=== PATIENT | female | born 1995 | race Caucasian/White ===

== ENCOUNTER → 2020-05-11 | Outpatient (REF) | payer BC ==
[2020-06-11 14:21] LABS: CHLAMYDIA DNA AMPLIFICATION NEGATIVE (NEGATIVE); GC DNA AMPLIFICATION NEGATIVE (NEGATIVE)
[2020-06-28 21:57] LABS: BASO % 0.3 % (0.0-1.0); EOS # 0.1 10^3/uL (0.0-0.5); EOS % 0.6 % (0.0-3.0); HEMATOCRIT 40.4 % (36.0-47.0); HEMOGLOBIN 14.3 g/dl (12.0-15.5); LYMPH # 1.8 10^3/uL (1.5-5.0); LYMPH % 21.1 % (24.0-44.0); MEAN CORPUSCULAR HEMOGLOBIN 31.9 pg (27.0-33.0); MEAN CORPUSCULAR HGB CONC 35.4 g/dl (32.0-36.5); MEAN CORPUSCULAR VOLUME 90.2 fl (80.0-96.0); MONO # 0.4 10^3/uL (0.0-0.8); MONO % 4.7 % (0.0-5.0); NEUTROPHILS # 6.3 10^3/uL (1.5-8.5); NEUTROPHILS % 72.8 % (36.0-66.0); PLATELET COUNT, AUTOMATED 297 10^3/uL (150-450); RED BLOOD COUNT 4.48 10^6/uL (4.00-5.40); WHITE BLOOD COUNT 8.6 10^3/uL (4.0-10.0)
[2020-07-05 03:48] LABS: HEPATITIS C VIRUS ABY INDEX 0.1 INDEX (<0.8); HIV 1&2 SCREEN CENTAUR NEGATIVE (NEGATIVE)
== END ==
LOC: M SFHCWAGY 12:54
PROVIDERS: ATTEND Advanced Practice Midwife
DX: Z34.01 Encounter for supervision of normal first pregnancy, first trimester (principal)

== ENCOUNTER → 2020-07-09 | Outpatient (CLI) | payer BC ==
--- NOTE | 2020-07-09 12:17 | REP ---
INDICATION: ANATOMY COMPARISON: None. TECHNIQUE: Transabdominal obstetrical ultrasound with color Doppler evaluation. FINDINGS: Examination demonstrates a single live intrauterine in breech presentation. motion is identified by technologist. Placenta is noted anterior and grade 1 without evidence for placenta previa or abruption. Amniotic fluid volume is normal. Cervix measures 3.1 cm in length and appears closed. No evidence for nuchal cord. Gestational age by current measurements 18 weeks 5 days with TASNEEM 12/05/2020. FHR equals 152 beats per minute. BPD: 4.1 cm; 18 weeks 3 days HC: 15.5 cm; 18 weeks 3 days AC: 14.0 cm; 19 weeks 2 days FL: 2.8 cm; 18 weeks 4 days HL: 2.7 cm; 18 weeks 5 days HC/AC ratio: 1.11 Estimated weight 263 grams (59thpercentile). Anatomical assessment demonstrates normal structures including cranium, cavum, cerebellum/posterior fossa, facial features, lungs, four-chamber heart/ventricular outflow tracts, diaphragm, stomach, cord insertion/three-vessel cord, kidneys/bladder, spine, and extremities. Small incidental right choroid plexus cyst measures 3 mm. IMPRESSION: 1. Single live intrauterine in breech presentation demonstrating appropriate estimated weight. 2. Right choroid plexus cyst. Remainder of the anatomical assessment is complete and normal. <Electronically signed by Samuel Villeda > 07/09/20 [id number]
== END ==
LOC: M WHC 06:47
PROVIDERS: ATTEND Advanced Practice Midwife
DX: O32.1XX0 Maternal care for breech presentation, not applicable or unspecified (principal); Z36.89 Encounter for other specified antenatal screening; Z3A.18 18 weeks gestation of pregnancy

== ENCOUNTER → 2020-09-03 | Outpatient (REF) | payer BC ==
[2020-09-03 13:19] LABS: HEMATOCRIT 37.7 % (36.0-47.0); HEMOGLOBIN 12.8 g/dl (12.0-15.5); MEAN CORPUSCULAR HEMOGLOBIN 32.3 pg (27.0-33.0); MEAN CORPUSCULAR VOLUME 95.2 fl (80.0-96.0); PLATELET COUNT, AUTOMATED 315 10^3/uL (150-450); RED BLOOD COUNT 3.96 10^6/uL (4.00-5.40); WHITE BLOOD COUNT 10.1 10^3/uL (4.0-10.0)
== END ==
LOC: M PLALAB 08:35
PROVIDERS: ATTEND Advanced Practice Midwife
DX: Z34.02 Encounter for supervision of normal first pregnancy, second trimester (principal)

== ENCOUNTER → 2020-11-18 | Outpatient (REF) | payer BC, OTHER | LOC: M SFHCPLAZ 18:37 | PROVIDERS: ATTEND Advanced Practice Midwife | DX: O26.849 Uterine size-date discrepancy, unspecified trimester (principal) ==

== ENCOUNTER → 2020-11-25 | Outpatient (CLI) | payer OTHER, MEDICAID ==
--- NOTE | 2020-11-25 10:27 | REP ---
INDICATION: SIZE>DATES,GROWTH COMPARISON: 07/09/2020 TECHNIQUE: Transabdominal obstetrical ultrasound with color Doppler evaluation. FINDINGS: Examination demonstrates a single live intrauterine in cephalic presentation. motion is identified by technologist. Placenta is noted anterior and grade 2 without evidence for placenta previa or abruption. Amniotic fluid volume is normal. Cervix appears closed.. Gestational age by 1st ultrasound 30 weeks 4 days with TASNEEM 12/05/2020. Gestational age by current measurements 37 weeks 2 days with TASNEEM 12/14/2020. FHR equals 153 beats per minute. BPD: 9.1 cm at 36 weeks 5 days HC: 33.1 cm at 37 weeks 5 days AC: 36.3 cm at 40 weeks 2 days FL: 6.9 cm at 35 weeks 3 days HL: 6.3 cm at 36 weeks 2 days HC/AC: 0.91 Estimated weight 3510 grams (71st percentile). SYLVIA: 17.4 cm (7.3-23.7) IMPRESSION: Single live intrauterine in cephalic presentation demonstrating appropriate interval growth. <Electronically signed by Samuel Villeda > 11/25/20 1024
== END ==
LOC: M WHC 09:34
PROVIDERS: ATTEND Advanced Practice Midwife
DX: O26.843 Uterine size-date discrepancy, third trimester (principal); Z3A.37 37 weeks gestation of pregnancy

== ENCOUNTER 2020-12-10 08:50 | Inpatient (IN) | payer OTHER, MEDICAID ==
[2020-12-10] VITALS (54 sets, daily range): BP systolic 97–136; BP diastolic 54–101
[~2020-12-10] VITALS: Ht 149.9 cm; Wt 60.6 kg
[2020-12-10] MEDS ORDERED: PREN1CHW6 PO (09:17)
[2020-12-10] MEDS ORDERED: LACTATED RINGER'S 1000 ML IV STA (10:58)
--- NOTE | 2020-12-10 11:04 | HPEPDOC ---
Obstetrical History & Physical General Date of Admission 12/10/20 Primary Care Physician: KELLI CABRERA CNM History of Present Illness Dejah is at 40.2 weeks gestation with an TASNEEM of 12/08/20 based off of her LMP and consistent with her first trimester ultrasound. She initiated care in her first trimester of . Her has been uncomplicated. She presents to L&D with complaints of leaking fluid starting last night at 2300 and painful contractions. She reports active movements. She denies vaginal bleeding. 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chew, 1 TAB PO DAILY Physical Examination Physical Examination GENERAL: Alert and oriented times three. ABDOMEN: Gravid and non-tender to touch. FETUS: Is vertex (VTX) by sterile vaginal examination (SVE), fetus is vertex (VTX) by Kyle. LUNGS: Clear to auscultation (CTA). EXTREMITIES: No edema. No clonus. Deep tendon reflexes (DTRs) + 2. Vital Signs/I&O Vital Signs Date Time Temp Pulse Resp B/P (MAP) Pulse Ox O2 Delivery O2 Flow Rate FiO2 12/10/20 09:15 98.1 90 20 119/75 (90) 98 Room Air Pertinent Laboratoy Data Blood Type: A+ RBC Antibody Screen: Negative HIV: Negative Hepatitis B: Negative Hepatitis C: Negative Rapid Plasma Reagin: Nonreactive Rubella: Immune Chlamydia/Gonorrhea: Negative Group B Streptococcus: Negative Glucose Tolerance Test: 102 Anatomy Ultrasound Ultrasound Date: Nov 25, 2020 Placenta Location: Anterior Normal Anatomy: Yes Placenta Previa: No Estimated Weight (grams): 3510 Vaginal Examination Dilation: 5 cm Effacement: 100% Station: 0 Presentation: Cephalic presentation Position: Vertex (occiput) Assessment Heart Rate (FHR): 130 Variability: Moderate Accelerations: Positive Decelerations: None Tocometer Contractions: Yes Frequency: irregular Multi-drug resistant Organism: No history of MDRO Assessment/Plan Assessment IUP at 40.2 weeks gestation GBS negative Category I FHR tracing active labor Plan Admit to L&D for active labor. She has a bulging bag of fluid and is not ruptured. OOB ad chas Diet: clears. Group B Streptococcus (GBS) negative. Labs and intravenous (IV) per unit protocol. Anesthesia consult per patient's request. Lactated Ringers (LR): Bolus 800 mL, then at 125 mL/hr. Anticipate normal spontaneous delivery (). C-S as appropriate. KELLI CABRERA CNM Dec 10, 2020 11:04
[2020-12-10 11:45] LABS: HEMATOCRIT 38.9 % (36.0-47.0); HEMOGLOBIN 13.6 g/dl (12.0-15.5); MEAN CORPUSCULAR HEMOGLOBIN 31.9 pg (27.0-33.0); MEAN CORPUSCULAR VOLUME 91.1 fl (80.0-96.0); PLATELET COUNT, AUTOMATED 248 10^3/uL (150-450); RED BLOOD COUNT 4.27 10^6/uL (4.00-5.40); WHITE BLOOD COUNT 12.9 10^3/uL (4.0-10.0)
[2020-12-10] MEDS ORDERED: FENTANYL 2MCG/ML ROPIVACAINE 0.2% IN 0.9% NACL 100ML IVBAG As Ordered ONE (12:17)
[2020-12-10] MEDS: LR 1,000 ML IV SCH ×3 (12:23→17:11)
[2020-12-10] MEDS ORDERED: ePHEDrine SULFATE 25 MG/5 ML(5MG/ML) SYRINGE As Ordered ONE (13:47)
[2020-12-10] MEDS: ePHEDrine SULFATE 25 MG/5 ML(5MG/ML) SYRINGE IV PRN ×3 (13:54→15:56)
[2020-12-10] MEDS ORDERED: FENTANYL/ROPIVACAINE/NACL BAG 100 ML EPIDURAL SCH (13:55)
[2020-12-10] MEDS ORDERED: EPIDURAL/PCA KEYS XX PRN (13:55)
[2020-12-10] MEDS ORDERED: EPIDURAL COMMENT XX SCH (13:55)
[2020-12-10] MEDS ORDERED: NALOXONE INJ 0.4MG/1ML VIAL (J2310 PER 1MG) IV PRN (13:55)
[2020-12-10] MEDS ORDERED: REFRIGERATOR IV KEYS XX PRN (13:55)
[2020-12-10] MEDS ORDERED: LACTATED RINGER'S 1000 ML IV PRN (13:55)
[2020-12-10] MEDS ORDERED: ONDANSETRON 4MG/2ML VIAL IV PRN (13:55)
[2020-12-10] MEDS ORDERED: diphenhydrAMINE 50MG/ML VIAL (J1200) IV PRN (13:55)
[2020-12-10] MEDS ORDERED: OXYTOCIN DRIP 30 UNITS in IV 1 EA IV SCH (15:15)
--- NOTE | 2020-12-10 17:50 | IPNPDOC ---
Obstetrical Progress Note Date of Service Dec 10, 2020 Subjective Patient reports she is comfortable with her epidural. Objective Vital Signs Date Time Temp Pulse Resp B/P (MAP) Pulse Ox O2 Delivery O2 Flow Rate FiO2 12/10/20 17:31 99.1 12/10/20 17:30 94 16 106/60 (75) 99 Room Air Assessment Heart Rate (FHR): 140 Variability: Moderate Accelerations: Positive Decelerations: None Heart Rate Tracing: Category I Tocometer Contractions: Yes Frequency: regular Sterile Vaginal Examination Dilation: 7 cm (7-8 cm) Effacement (%): 100% Station: 0 Postion/Presentation: Cephalic presentation Assessment and Plan Status: Reassuring Group B Streptococcus: Negative Anticipate: Vaginal Delivery Additional Comments IV Pitocin at 6 mu/min. AROM to a moderate amount of white/clear fluid. KELLI CABRERA CNM Dec 10, 2020 17:50
--- NOTE | 2020-12-10 22:15 | IPNPDOC ---
Obstetrical Progress Note Date of Service Dec 10, 2020 Subjective Patient feeling pressure and feeling like she has to push at times. Objective Vital Signs Date Time Temp Pulse Resp B/P (MAP) Pulse Ox O2 Delivery O2 Flow Rate FiO2 12/10/20 18:59 89 20 105/59 (74) 12/10/20 17:31 99.1 12/10/20 17:30 99 Room Air Assessment Heart Rate (FHR): 140 Variability: Moderate Accelerations: Positive Decelerations: Early Heart Rate Tracing: Category I Tocometer Contractions: Yes Frequency: regular Sterile Vaginal Examination Dilation: 9 cm (anterior lip) Station: +1 Postion/Presentation: Cephalic presentation Assessment and Plan Status: Reassuring Group B Streptococcus: Negative Anticipate: Vaginal Delivery KELLI CABRERA CNM Dec 10, 2020 22:14
[2020-12-11] VITALS (13 sets, daily range): BP systolic 104–126; BP diastolic 59–77
[2020-12-11] MEDS ORDERED: ACETAMINOPHEN 500 MG TAB PO ONE (00:45)
[2020-12-11] MEDS: LR 1,000 ML IV SCH (00:52)
--- NOTE | 2020-12-11 01:25 | IPNPDOC ---
Obstetrical Progress Note Date of Service Dec 11, 2020 Subjective Patient reports good pain control with epidural. She is having good maternal pushing efforts. Objective Vital Signs Date Time Temp Pulse Resp B/P (MAP) Pulse Ox O2 Delivery O2 Flow Rate FiO2 12/10/20 18:59 89 20 105/59 (74) 12/10/20 17:31 99.1 12/10/20 17:30 99 Room Air Assessment Heart Rate (FHR): 180 Variability: Moderate (FHR 180-200's) Accelerations: Positive Decelerations: Variable Heart Rate Tracing: Category II Tocometer Contractions: Yes Assessment and Plan Additional Comments Dr. Pimentel notified of tachycardia and maternal fever and instructed to come in for assistance. Given Tylenol 1000 mg PO for fever. Will continue to push with patient until arrival of Dr. Pimentel. KELLI CABRERA CNM Dec 11, 2020 01:25
--- NOTE | 2020-12-11 02:32 | ROOPDOC ---
[facility] Report Of Operation Report of Operation DATE OF PROCEDURE: 12/11/20 PREPROCEDURE DIAGNOSES: Status post vaginal delivery, second degree laceration, intra-amniotic infection POSTPROCEDURE DIAGNOSES: same PROCEDURE: Second degree obstetric laceration repair. SURGEON: Marifer Pimentel APPRAISER BOATS AND MARINE: Christen Hartley ANESTHESIA: Epidural ESTIMATED BLOOD LOSS: Approximately 300 mL. PROCEDURE NOTE: Epidural was functioning well. External anal sphincter was noted to be intact. A second degree laceration was noted and repaired with 3-0 Vicryl in typical running locked fashion. Excellent hemostasis was noted. Given the degree of vulvar swelling, an ice pack was placed over the repaired perineum. The bladder was drained with a straight catheter. Patient tolerated the procedure well. Vitals were normal and stable. The patient will be receiving IV antibiotics given her diagnosis of IAI. Sponge, needle and instrument counts were correct per protocol. DO DANIA Robledo JONATHAN R. DO Dec 11, 2020 02:32
[2020-12-11 02:34] LABS: CORD GAS ABE V -12.5; CORD GAS HCO3 V 14.8 MEQ/L; CORD GAS O2 SAT V 72.4 %; CORD GAS PCO2 V 38.8 mmHg; CORD GAS PH V 7.198 UNITS; CORD GAS SBC V 14.6 MEQ/L; CORD GAS TCO2 V 15.9 MEQ/L
[2020-12-11] MEDS: AMPICILLIN SOD/SULBACTAM SOD 3 GM in D5W MINI-BAG PLUS 100 ML IV SCH ×4 (03:03→21:56)
--- NOTE | 2020-12-11 03:10 | DNPDOC ---
[facility] Delivery Note Delivery Note DATE OF DELIVERY: 12/11/20 at 0157 PREDELIVERY DIAGNOSIS: 40-2/7 weeks' gestation and labor. POST DELIVERY DIAGNOSIS: Delivered. PROCEDURE: Spontaneous vaginal delivery. TRAIN BRAKER: Kelli Hartley CNM, WHNP ANESTHESIA: epidural. ESTIMATED BLOOD LOSS: 300 mL. FINDINGS: 7 pounds 8 ounces; 3400 grams; male , Score 7/8, nuchal cord times x1 loose, chorioamnionitis, nuchal cord x1 loose. DELIVERY SUMMARY: Yana is now a who presented to L&D in active labor. She requested an epidural for pain management. She progressed to fully dilated at 2222. While pushing (an hour before delivery) she spiked a temperature of 101.5 and given PO Tylenol. About that time the fetus started having a tachycardia. Dr. Pimentel was notified to come into department about 30-40 minutes after fever started. Maternal pushing efforts improved and patient was able to have a vaginal delivery while Dr. Pimentel was present. The head delivered OA with restitution to LOT. A loose nuchal cord was noted and reduced. The anterior shoulder delivered with ease and the corpus immediately followed. A large amount of meconium followed delivery of baby. The baby was placed on the maternal abdomen active and crying with stimulation. The cord was clamped after a few minutes per patient's request. A venous cord was only able to be obtained and sent to lab. The placenta delivered spontaneously and intact at 0202. Uterine hemostasis was achieved via rapid infusion of IV infusion and fundal massage. The vagina, cervix, and perineum were inspected and found to have a second degree perineal laceration that was repaired by Dr. Pimentel. Her perineum is very swollen. Ice diapers ordered for 24 hours along with Unasyn 3 grams every 6 hours for 24 hours. Baby is stable and will be brought over to NICU per chorioamnionitis protocols. Mom is stable. All instruments and sponges are correct. They plan on naming their son Mac and mom plans to breastfeed. Vital Signs Label Value Date Time Patient Temperature 98.1 degrees F 12/10/20 0915 Temperature Source Temporal 12/10/20 0915 Pulse 90 12/10/20 0915 Respiratory Rate 20 bpm 12/10/20 0915 Blood Pressure Assessment 119/75 (90) 3/19/21 0915 Source Automatic Cuff (NIBP) Bedside Pulse Oximetry 98 % 12/10/20914 Item Value Date Time Cord Venous Blood pH 7.198 UNITS 12/11/20211 Cord Venous Blood PCO2 38.8 mmHg 12/11/20211 Cord Venous Blood PO2 36.0 mmHg 12/11/20211 Cord Venous Blood HCO3 14.8 MEQ/L 12/11/20211 Cord Venous Blood Total CO2 15.9 MEQ/L 12/11/20211 Cord Venous Base Excess (Actual) -12.5 12/11/20211 Cord Venous Base Excess (Standard) 14.6 MEQ/L 12/11/20211 Cord Venous Blood Oxygen Saturation 72.4 % 12/11/20211 KELLI HARTLEY CNM Dec 11, 2020 03:10
[2020-12-11] MEDS ORDERED: OXYTOCIN DRIP 30 UNITS in IV 1 EA IV SCH (03:12)
[2020-12-11] MEDS ORDERED: IBUPROFEN 600MG TAB PO PRN (03:15)
[2020-12-11] MEDS ORDERED: DOCUSATE SODIUM 100MG CAPSULE PO PRN (03:15)
[2020-12-11] MEDS ORDERED: MEASLES,MUMPS,RUBELLA VACCINE INJ (MMR-II) (90707) SC SCH (03:15)
[2020-12-11] MEDS ORDERED: METHYLERGONOVINE MALEATE 0.2 MG TAB PO PRN (03:15)
[2020-12-11] MEDS ORDERED: RHOGAM 300 MCG (1500 IU) INJ (J2790) IM SCH (03:15)
[2020-12-11] MEDS ORDERED: ACETAMINOPHEN TAB 650MG DOSE (2X325MG) PO PRN (03:15)
[2020-12-11] MEDS ORDERED: ANUSOL HC CREAM 30GM TOP PRN (03:15)
[2020-12-11] MEDS: IBUPROFEN 800 MG TAB PO PRN ×2 (06:17→17:15)
[2020-12-11] MEDS: DIBUCAINE 1% OINTMENT 30GM TOP PRN (06:17)
[2020-12-11] MEDS: PRENATAL VITAMINS CHEWABLE TABLET PO SCH (09:08)
[2020-12-11] MEDS: ACETAMINOPHEN 500 MG TAB PO PRN (09:36)
[2020-12-12] MEDS: AMPICILLIN SOD/SULBACTAM SOD 3 GM in D5W MINI-BAG PLUS 100 ML IV SCH (03:17)
[2020-12-12] MEDS: IBUPROFEN 800 MG TAB PO PRN ×2 (03:22→16:01)
[2020-12-12 06:29] VITALS: BP 102/70
[2020-12-12] MEDS: DIBUCAINE 1% OINTMENT 30GM TOP PRN (08:12)
[2020-12-12] MEDS: PRENATAL VITAMINS CHEWABLE TABLET PO SCH (08:13)
[2020-12-12] MEDS: ACETAMINOPHEN 500 MG TAB PO PRN (08:13)
[2020-12-12 18:00] VITALS: BP 108/68
[2020-12-13] MEDS: IBUPROFEN 800 MG TAB PO PRN ×2 (01:12→15:20)
[2020-12-13 06:09] VITALS: BP 100/60
[2020-12-13] MEDS: PRENATAL VITAMINS CHEWABLE TABLET PO SCH (08:28)
[2020-12-13] MEDS: ACETAMINOPHEN 500 MG TAB PO PRN (08:29)
--- NOTE | 2020-12-13 09:17 | IPNPDOC ---
Progress Note Date of Service: Dec 13, 2020 Day#: 2 Progress Note SUBJECT: Status post . She has been ambulating, voiding spontaneously without issue and tolerating regular diet. Lochia decreasing/minimal. Pain is well-controlled. Denies headache, visual changes, right upper quadrant pain, shortness breath or chest pain. OBJECTIVE: VITAL SIGNS: Within normal limits, afebrile. Alert and oriented times three. Abdomen: Fundus firm at U-2. Soft, NTTP. ASSESSMENT: Status post uncomplicated spontaneous vaginal delivery. Vitals within normal limits, afebrile, hemodynamically stable with no evidence of infection. PLAN: Discharge to home today. Tylenol and Motrin for pain. Routine instructions/precautions reviewed. Routine PP visit in 6 weeks in clinic. VS, I&O, 24H, Fishbone Vital Signs/I&O Vital Signs Date Time Temp Pulse Resp B/P (MAP) Pulse Ox O2 Delivery O2 Flow Rate FiO2 12/13/20 06:09 97.3 88 16 100/60 (73) 98 Room Air TYREE NAJERA DO Dec 13, 2020 09:17
[2020-12-13] MEDS ORDERED: DIBU10OI TOP (09:36)
[2020-12-13] MEDS: DIBUCAINE 1% OINTMENT 30GM TOP PRN (15:20)
== END 2020-12-13 15:30 | disposition home or self-care (01) | DRG 560 ==
LOC: M LDO 08:50 → M LDI 11:05 → M OBS 12-11 05:55
PROVIDERS: ADMIT Advanced Practice Midwife; ATTEND Advanced Practice Midwife
PROC: 10907ZC Drainage of Amniotic Fluid, Therapeutic from Products of Conception, Via Natural or Artificial Opening (ICD-10-PCS; 2020-12-10)
PROC: 10E0XZZ Delivery of Products of Conception, External Approach (ICD-10-PCS; principal; 2020-12-11)
PROC: 0KQM0ZZ Repair Perineum Muscle, Open Approach (ICD-10-PCS; 2020-12-11)
DX: O48.0 Post-term pregnancy (principal); Z3A.40 40 weeks gestation of pregnancy; O76 Abnormality in fetal heart rate and rhythm complicating labor and delivery; O70.1 Second degree perineal laceration during delivery; O41.1230 Chorioamnionitis, third trimester, not applicable or unspecified; O69.81X0 Labor and delivery complicated by cord around neck, without compression, not applicable or unspecified; O77.0 Labor and delivery complicated by meconium in amniotic fluid; Z37.0 Single live birth

== ENCOUNTER → 2021-02-24 | Outpatient (REF) | payer OTHER, MEDICAID ==
[~2021-02-24] MED LIST: DIBU28OI2 TOP; PREN1CHW6 PO
== END ==
LOC: M SFHCWAGY 13:15
PROVIDERS: ATTEND Advanced Practice Midwife
DX: Z12.4 Encounter for screening for malignant neoplasm of cervix (principal); R87.610 Atypical squamous cells of undetermined significance on cytologic smear of cervix (ASC-US)

== ENCOUNTER → 2021-06-09 | Outpatient (REF) | payer OTHER, MEDICAID | LOC: M LAB REF 15:59 | PROVIDERS: ATTEND Physician Assistant | DX: D22.9 Melanocytic nevi, unspecified (principal) ==

== ENCOUNTER → 2021-08-02 | Outpatient (REF) | payer OTHER, MEDICAID | LOC: M LAB REF 16:35 | PROVIDERS: ATTEND Dermatology | DX: D22.72 Melanocytic nevi of left lower limb, including hip (principal) ==

== ENCOUNTER → 2022-03-30 | Outpatient (CLI) | payer OTHER, MEDICAID ==
[2022-03-30 13:40] LABS: BASO # 0.1 10^3/uL (0.0-0.2); BASO % 0.5 % (0.0-1.0); EOS % 0.4 % (0.0-3.0); HEMATOCRIT 33.8 % (36.0-47.0); LYMPH # 1.6 10^3/uL (1.5-5.0); LYMPH % 17.6 % (24.0-44.0); MEAN CORPUSCULAR HEMOGLOBIN 32.7 pg (27.0-33.0); MEAN CORPUSCULAR HGB CONC 35.5 g/dl (32.0-36.5); MEAN CORPUSCULAR VOLUME 92.1 fl (80.0-96.0); MONO # 0.5 10^3/uL (0.0-0.8); NEUTROPHILS # 6.9 10^3/uL (1.5-8.5); NEUTROPHILS % 75.6 % (36.0-66.0); PLATELET COUNT, AUTOMATED 292 10^3/uL (150-450); RED BLOOD COUNT 3.67 10^6/uL (4.00-5.40); WHITE BLOOD COUNT 9.2 10^3/uL (4.0-10.0)
[2022-03-30 14:36] LABS: HEPATITIS C VIRUS ABY INDEX 0.1 INDEX (<0.8); HIV 1&2 SCREEN CENTAUR NEGATIVE (NEGATIVE)
[2022-03-30 15:54] LABS: GC DNA AMPLIFICATION NEGATIVE (NEGATIVE)
== END ==
LOC: M PLALAB 09:54
PROVIDERS: ATTEND Obstetrics & Gynecology
DX: Z36.9 Encounter for antenatal screening, unspecified (principal)

== ENCOUNTER → 2022-04-19 | Outpatient (CLI) | payer OTHER, MEDICAID | LOC: M WHC 10:08 | PROVIDERS: ATTEND Specialist | DX: Z36.3 Encounter for antenatal screening for malformations (principal); Z3A.20 20 weeks gestation of pregnancy ==

== ENCOUNTER → 2022-05-30 | Outpatient (CLI) | payer OTHER, MEDICAID ==
[2022-05-30 13:51] LABS: HEMATOCRIT 31.2 % (36.0-47.0); HEMOGLOBIN 10.6 g/dl (12.0-15.5); MEAN CORPUSCULAR HEMOGLOBIN 31.5 pg (27.0-33.0); MEAN CORPUSCULAR VOLUME 92.9 fl (80.0-96.0); PLATELET COUNT, AUTOMATED 283 10^3/uL (150-450); RED BLOOD COUNT 3.36 10^6/uL (4.00-5.40); WHITE BLOOD COUNT 8.6 10^3/uL (4.0-10.0)
[2022-05-30 15:33] LABS: GC DNA AMPLIFICATION NEGATIVE (NEGATIVE)
== END ==
LOC: M PLALAB 09:27
PROVIDERS: ATTEND Obstetrics & Gynecology
DX: Z36.89 Encounter for other specified antenatal screening (principal); Z3A.22 22 weeks gestation of pregnancy

== ENCOUNTER → 2022-07-21 | Outpatient (CLI) | payer OTHER | LOC: M WHC 08:17 | PROVIDERS: ATTEND Obstetrics & Gynecology | DX: O26.849 Uterine size-date discrepancy, unspecified trimester (principal); Z3A.33 33 weeks gestation of pregnancy ==

== ENCOUNTER → 2022-08-16 | Outpatient (REF) | payer OTHER | LOC: M PLALAB 10:48 | PROVIDERS: ATTEND Advanced Practice Midwife | DX: Z34.83 Encounter for supervision of other normal pregnancy, third trimester (principal); Z3A.00 Weeks of gestation of pregnancy not specified ==

== ENCOUNTER 2022-08-29 12:02 | Inpatient (IN) | payer OTHER ==
[~2022-08-29] VITALS: Ht 149.9 cm; Wt 56.0 kg
[2022-08-29] VITALS (30 sets, daily range): BP systolic 101–143; BP diastolic 55–77
[2022-08-29 12:46] LABS: HEMATOCRIT 30.7 % (36.0-47.0); MEAN CORPUSCULAR HEMOGLOBIN 25.2 pg (27.0-33.0); MEAN CORPUSCULAR HGB CONC 32.6 g/dl (32.0-36.5); MEAN CORPUSCULAR VOLUME 77.3 fl (80.0-96.0); PLATELET COUNT, AUTOMATED 280 10^3/uL (150-450); RED BLOOD COUNT 3.97 10^6/uL (4.00-5.40); WHITE BLOOD COUNT 8.9 10^3/uL (4.0-10.0)
[2022-08-29] MEDS ORDERED: LACTATED RINGER'S 1000 ML IV STA (13:29)
[2022-08-29] MEDS ORDERED: OXYTOCIN DRIP 30 UNITS in IV 1 EA IV SCH (13:30)
[2022-08-29] MEDS ORDERED: LIDOCAINE 1% MDV 20ML VIAL INFIL PRN (13:30)
[2022-08-29] MEDS ORDERED: TRANEXAMIC ACID INJection 1,000 MG in NS 100 ML IV PRN (13:30)
[2022-08-29] MEDS ORDERED: METHYLERGONOVINE MALEATE 0.2 MG/ML VIAL (J2210) IM PRN (13:30)
[2022-08-29] MEDS ORDERED: CARBOPROST TROMETHAMINE 250 MCG/ML AMP IM PRN (13:30)
[2022-08-29] MEDS ORDERED: OXYTOCIN DRIP 30 UNITS in IV 1 EA IV PRN (13:30)
[2022-08-29] MEDS: LR 1,000 ML IV SCH ×2 (14:12→21:46)
[2022-08-29] MEDS ORDERED: diphenhydrAMINE 50MG/ML VIAL IV PRN (20:50)
[2022-08-29] MEDS ORDERED: EPIDURAL/PCA KEYS XX PRN (20:50)
[2022-08-29] MEDS ORDERED: FENTANYL/ROPIVACAINE/NACL BAG 100 ML EPIDURAL SCH (20:50)
[2022-08-29] MEDS ORDERED: NALOXONE INJ 0.4MG/1ML VIAL IV PRN (20:50)
[2022-08-29] MEDS ORDERED: ONDANSETRON 4MG 2ML VIAL IV PRN (20:50)
[2022-08-29] MEDS ORDERED: LR 500 ML IV PRN (20:50)
[2022-08-29] MEDS ORDERED: ePHEDrine SULFATE 25 MG/5 ML(5MG/ML) SYRINGE IVP PRN (20:50)
[2022-08-30] VITALS (7 sets, daily range): BP systolic 95–122; BP diastolic 51–69
[2022-08-30] MEDS ORDERED: IBUPROFEN 600MG TAB PO PRN (00:40)
[2022-08-30] MEDS ORDERED: RHOGAM 300 MCG (1500 IU) INJ (J2790) IM SCH (00:40)
[2022-08-30] MEDS ORDERED: OXYTOCIN DRIP 30 UNITS in IV 1 EA IV SCH (00:40)
[2022-08-30] MEDS ORDERED: DIBUCAINE 1% OINTMENT 30GM TOP PRN (00:40)
[2022-08-30] MEDS ORDERED: ANUSOL HC CREAM 30GM TOP PRN (00:40)
[2022-08-30] MEDS ORDERED: ACETAMINOPHEN TAB 650MG DOSE (2X325MG) PO PRN (00:40)
[2022-08-30] MEDS: PRENATAL VITAMINS CHEWABLE TABLET PO SCH (08:44)
[2022-08-30] MEDS: IBUPROFEN 800 MG TAB PO PRN (15:27)
[2022-08-30] MEDS: ACETAMINOPHEN 500 MG TAB PO PRN (19:24)
[2022-08-30] MEDS: DOCUSATE SODIUM 100MG CAPSULE PO PRN (19:32)
[2022-08-31] MEDS: IBUPROFEN 800 MG TAB PO PRN ×2 (04:53→15:53)
[2022-08-31 06:00] VITALS: BP 105/61
[2022-08-31] MEDS: PRENATAL VITAMINS CHEWABLE TABLET PO SCH (09:07)
[2022-08-31] MEDS ORDERED: HOME MED LIST COMPLETE! XX SCH (09:35)
[2022-08-31 18:00] VITALS: BP 121/71
[2022-08-31] MEDS: DOCUSATE SODIUM 100MG CAPSULE PO PRN (22:05)
[2022-09-01] MEDS: ACETAMINOPHEN 500 MG TAB PO PRN (02:02)
[2022-09-01 06:00] VITALS: BP 108/68
[2022-09-01] MEDS: PRENATAL VITAMINS CHEWABLE TABLET PO SCH (08:22)
[2022-09-01] MEDS ORDERED: MEASLES,MUMPS,RUBELLA VACCINE INJ (MMR-II) (90707) SC.IMMUN ONE (09:00)
== END 2022-09-01 10:51 | disposition home or self-care (01) | DRG 560 ==
LOC: M LDI 12:02 → M OBS 08-30 02:37
PROVIDERS: ADMIT Obstetrics & Gynecology; ATTEND Obstetrics & Gynecology
PROC: 3E033VJ Introduction of Other Hormone into Peripheral Vein, Percutaneous Approach (ICD-10-PCS; 2022-08-29)
PROC: 10907ZC Drainage of Amniotic Fluid, Therapeutic from Products of Conception, Via Natural or Artificial Opening (ICD-10-PCS; 2022-08-29)
PROC: 10E0XZZ Delivery of Products of Conception, External Approach (ICD-10-PCS; principal; 2022-08-30)
PROC: 0HQ9XZZ Repair Perineum Skin, External Approach (ICD-10-PCS; 2022-08-30)
DX: O40.3XX0 Polyhydramnios, third trimester, not applicable or unspecified (principal); O70.0 First degree perineal laceration during delivery; Z3A.39 39 weeks gestation of pregnancy; Z37.0 Single live birth

== ENCOUNTER → 2022-11-30 | Outpatient (REF) | payer OTHER | LOC: M SFHCWAGY 15:16 | PROVIDERS: ATTEND Nurse Practitioner Family | DX: Z12.4 Encounter for screening for malignant neoplasm of cervix (principal); R87.610 Atypical squamous cells of undetermined significance on cytologic smear of cervix (ASC-US) ==

== ENCOUNTER → 2023-02-06 | Outpatient (REF) | payer OTHER | LOC: M SFHCDERM 18:09 | PROVIDERS: ATTEND Physician Assistant | DX: D49.2 Neoplasm of unspecified behavior of bone, soft tissue, and skin (principal) ==

== ENCOUNTER → 2023-03-23 | Outpatient (CLI) | payer OTHER | LOC: M WHC 12:59 | PROVIDERS: ATTEND Obstetrics & Gynecology | DX: Z34.92 Encounter for supervision of normal pregnancy, unspecified, second trimester (principal); Z3A.18 18 weeks gestation of pregnancy ==

== ENCOUNTER → 2023-03-23 | Outpatient (CLI) | payer OTHER ==
[2023-03-23 15:50] LABS: HEMATOCRIT 36.4 % (36.0-47.0); HEMOGLOBIN 12.3 g/dl (12.0-15.5); MEAN CORPUSCULAR HEMOGLOBIN 29.4 pg (27.0-33.0); MEAN CORPUSCULAR HGB CONC 33.8 g/dl (32.0-36.5); MEAN CORPUSCULAR VOLUME 86.9 fl (80.0-96.0); PLATELET COUNT, AUTOMATED 337 10^3/uL (150-450); RED BLOOD COUNT 4.19 10^6/uL (4.00-5.40); WHITE BLOOD COUNT 9.1 10^3/uL (4.0-10.0)
[2023-03-23 16:46] LABS: HIV 1&2 SCREEN NEGATIVE (NEGATIVE)
[2023-03-23 16:54] LABS: HEPATITIS C VIRUS ABY INDEX 0.11 INDEX (<0.8)
[2023-03-23 17:09] LABS: GC DNA AMPLIFICATION NEGATIVE (NEGATIVE)
== END ==
LOC: M PLALAB 14:12
PROVIDERS: ATTEND Advanced Practice Midwife
DX: Z34.91 Encounter for supervision of normal pregnancy, unspecified, first trimester (principal)

== ENCOUNTER → 2023-05-10 | Outpatient (CLI) | payer OTHER ==
[2023-05-10 16:32] LABS: HEMATOCRIT 32.2 % (36.0-47.0); HEMOGLOBIN 10.5 g/dl (12.0-15.5); MEAN CORPUSCULAR HEMOGLOBIN 28.1 pg (27.0-33.0); MEAN CORPUSCULAR HGB CONC 32.6 g/dl (32.0-36.5); MEAN CORPUSCULAR VOLUME 86.1 fl (80.0-96.0); PLATELET COUNT, AUTOMATED 301 10^3/uL (150-450); RED BLOOD COUNT 3.74 10^6/uL (4.00-5.40); WHITE BLOOD COUNT 11.3 10^3/uL (4.0-10.0)
== END ==
LOC: M PLALAB 12:43
PROVIDERS: ATTEND Advanced Practice Midwife
DX: Z34.82 Encounter for supervision of other normal pregnancy, second trimester (principal)

== ENCOUNTER → 2023-06-14 | Outpatient (CLI) | payer OTHER | LOC: M WHC 08:48 | PROVIDERS: ATTEND Advanced Practice Midwife | DX: O44.42 Low lying placenta NOS or without hemorrhage, second trimester (principal) ==

== ENCOUNTER → 2023-07-19 | Outpatient (REF) | payer OTHER | LOC: M PLALAB 10:07 | PROVIDERS: ATTEND Obstetrics & Gynecology | DX: Z34.00 Encounter for supervision of normal first pregnancy, unspecified trimester (principal) ==

== ENCOUNTER 2023-08-23 12:53 | Inpatient (IN) | payer MEDICAID, OTHER ==
[~2023-08-23] VITALS: Ht 149.9 cm; Wt 49.4 kg
[~2023-08-23 12:53] MED LIST changes: +ACET-683 PO; +IBUP80TA PO; +PRENCHW PO
[2023-08-23] MEDS ORDERED: NS 1,000 ML IV ONE (14:05)
[2023-08-23] MEDS ORDERED: KETOROLAC 30 MG/ML 1ML VIAL IV ONE (14:05)
[2023-08-23] MEDS ORDERED: ONDANSETRON 4MG 2ML VIAL IV ONE (14:05)
[2023-08-23 14:48] LABS: BASO # 0.1 10^3/uL (0.0-0.2); BASO % 0.3 % (0.0-1.0); EOS % 0.1 % (0.0-3.0); HEMOGLOBIN 11.2 g/dl (12.0-15.5); LYMPH # 1.3 10^3/uL (1.5-5.0); LYMPH % 6.8 % (24.0-44.0); MEAN CORPUSCULAR HEMOGLOBIN 23.8 pg (27.0-33.0); MEAN CORPUSCULAR HGB CONC 30.3 g/dl (32.0-36.5); MEAN CORPUSCULAR VOLUME 78.6 fl (80.0-96.0); MONO # 0.3 10^3/uL (0.0-0.8); MONO % 1.5 % (2.0-8.0); NEUTROPHILS # 17.7 10^3/uL (1.5-8.5); NEUTROPHILS % 90.7 % (36.0-66.0); PLATELET COUNT, AUTOMATED 569 10^3/uL (150-450); RED BLOOD COUNT 4.71 10^6/uL (4.00-5.40); WHITE BLOOD COUNT 19.5 10^3/uL (4.0-10.0)
[2023-08-23 15:08] LABS: LIPASE 34 U/L (12-53)
[2023-08-23 15:10] LABS: ALBUMIN 3.7 G/DL (3.2-5.2); ALKALINE PHOSPHATASE 126 U/L (46-116); ALT/SGPT 17 U/L (7.0-40); AST/SGOT 15 U/L (<34); BILIRUBIN,DIRECT 0.1 MG/DL (<0.4); BILIRUBIN,TOTAL 0.5 MG/DL (0.3-1.2); BLOOD UREA NITROGEN 10 MG/DL (9-23); CALCIUM LEVEL 9.7 MG/DL (8.5-10.1); CARBON DIOXIDE LEVEL 25 MMOL/L (20-31); CHLORIDE LEVEL 107 MMOL/L (98-107); CREATININE FOR GFR 0.55 MG/DL (0.55-1.30); GLOMERULAR FILTRATION RATE > 60.0 (>60); GLUCOSE, FASTING 97 MG/DL (60-100); POTASSIUM SERUM 4.1 MMOL/L (3.5-5.1); SODIUM LEVEL 143 MMOL/L (136-145)
[2023-08-23] MEDS ORDERED: MORPHINE 4 MG/ML 1ML VIAL IV ONE (18:55)
[2023-08-23] MEDS ORDERED: cefTRIAXone SOD 1 GM in D5W MINI-BAG PLUS 50 ML IV ONE (19:35)
[2023-08-23] MEDS ORDERED: HOME MED LIST COMPLETE! XX SCH (20:15)
[2023-08-23] MEDS ORDERED: ONDANSETRON 4MG 2ML VIAL IV PRN (21:45)
[2023-08-23] MEDS ORDERED: HYDROMORPHONE HCL 0.5 MG/ 0.5 ML SYRINGE IV PRN (21:45)
[2023-08-23] MEDS: LR 1,000 ML IV SCH (22:24)
[2023-08-23 22:58] VITALS: BP 102/78; O2SAT 97
[2023-08-24] MEDS: KETOROLAC 30 MG/ML 1ML VIAL IV PRN ×2 (01:19→07:24)
[2023-08-24 06:09] VITALS: BP 100/64; TEMP 98.4; O2SAT 98
[2023-08-24] MEDS: LR 1,000 ML IV SCH (06:35)
[2023-08-24] MEDS ORDERED: KETOROLAC 30 MG/ML 1ML VIAL IV PRN (07:35)
[2023-08-24] MEDS ORDERED: LIDOCAINE 2% 100MG/5ML SDV (FOR ANES.) As Ordered ONE (08:09)
[2023-08-24] MEDS ORDERED: ONDANSETRON 4MG 2ML VIAL As Ordered ONE (08:09)
[2023-08-24] MEDS ORDERED: propofoL 200 MG/20 ML VIAL As Ordered ONE (08:09)
[2023-08-24 08:38] LABS: BASO % 0.3 % (0.0-1.0); EOS # 0.1 10^3/uL (0.0-0.5); EOS % 0.9 % (0.0-3.0); HEMATOCRIT 33.4 % (36.0-47.0); HEMOGLOBIN 10.2 g/dl (12.0-15.5); LYMPH # 1.6 10^3/uL (1.5-5.0); LYMPH % 12.9 % (24.0-44.0); MEAN CORPUSCULAR HEMOGLOBIN 23.9 pg (27.0-33.0); MEAN CORPUSCULAR HGB CONC 30.5 g/dl (32.0-36.5); MEAN CORPUSCULAR VOLUME 78.4 fl (80.0-96.0); MONO # 0.6 10^3/uL (0.0-0.8); MONO % 4.6 % (2.0-8.0); NEUTROPHILS # 9.9 10^3/uL (1.5-8.5); NEUTROPHILS % 80.8 % (36.0-66.0); RED BLOOD COUNT 4.26 10^6/uL (4.00-5.40); WHITE BLOOD COUNT 12.2 10^3/uL (4.0-10.0)
[2023-08-24 08:39] LABS: PLATELET COUNT, AUTOMATED 430 10^3/uL (150-450)
[2023-08-24 08:57] LABS: BLOOD UREA NITROGEN 10 MG/DL (9-23); CALCIUM LEVEL 8.2 MG/DL (8.5-10.1); CARBON DIOXIDE LEVEL 24 MMOL/L (20-31); CHLORIDE LEVEL 107 MMOL/L (98-107); CREATININE FOR GFR 0.78 MG/DL (0.55-1.30); GLOMERULAR FILTRATION RATE > 60.0 (>60); GLUCOSE, FASTING 85 MG/DL (60-100); IRON (FE) 63 UG/DL (50-170); PERCENT SATURATION 16.5 % (13.2-45.0); POTASSIUM SERUM 3.9 MMOL/L (3.5-5.1); SODIUM LEVEL 137 MMOL/L (136-145); TOTAL IRON BINDING CAPACITY 382 UG/DL (250-425)
[2023-08-24 08:59] LABS: FOLATE 9.9 NG/ML (>5.4)
[2023-08-24 09:00] LABS: VITAMIN B12 LEVEL 238 PG/ML (211-911)
[2023-08-24 10:45] VITALS: BP 104/64; TEMP 97.6; O2SAT 100
[2023-08-24] MEDS ORDERED: MIDAZOLAM INJ 2MG/2ML VIAL As Ordered ONE (10:56)
[2023-08-24] MEDS ORDERED: fentaNYL 100 MCG/2 ML INJECTION As Ordered ONE (10:56)
[2023-08-24] MEDS ORDERED: ISOVUE-300 61% 100ML VIAL As Ordered ONE (11:59)
[2023-08-24] MEDS ORDERED: FERROUS SULFATE 325MG TAB PO SCH (12:00)
[2023-08-24] MEDS ORDERED: LevoFLOXacin IV 500 MG in IV 1 EA IV ONE (12:05)
[2023-08-24] MEDS ORDERED: ACETAMINOPHEN 1000MG 100ML IV BAG As Ordered ONE (12:49)
[2023-08-24] MEDS ORDERED: LevoFLOXacin 500MG/100ML IV BAG As Ordered ONE (12:57)
[2023-08-24] MEDS ORDERED: LR 1,000 ML IV SCH (13:35)
[2023-08-24] MEDS ORDERED: ONDANSETRON 4MG 2ML VIAL IV PRN (13:35)
[2023-08-24] MEDS ORDERED: HYDROMORPHONE HCL 0.5 MG/ 0.5 ML SYRINGE IV PRN (13:35)
[2023-08-24] MEDS ORDERED: oxyCODONE 5MG TAB PO PRN (13:35)
[2023-08-24] MEDS ORDERED: fentaNYL 100 MCG/2 ML INJECTION IV PRN (13:35)
[2023-08-24 14:00] VITALS: TEMP 98.2; O2SAT 98
[2023-08-24 14:05] VITALS: BP 105/75
[2023-08-24] MEDS ORDERED: ACET-907 PO (14:39)
[2023-08-24] MEDS ORDERED: IBUP-1022 PO (14:39)
[2023-08-24] MEDS ORDERED: cefTRIAXone SOD 1 GM in D5W MINI-BAG PLUS 50 ML IV SCH (20:00)
== END 2023-08-24 15:40 | disposition home or self-care (01) | DRG 446 ==
LOC: M ED 12:53 → M ED INP 21:10 → M MS5PR 22:40
PROVIDERS: ADMIT Internal Medicine; ATTEND Student in an Organized Health Care Education/Training Program
PROC: 0T778DZ Dilation of Left Ureter with Intraluminal Device, Via Natural or Artificial Opening Endoscopic (ICD-10-PCS; 2023-08-24)
PROC: 0TC78ZZ Extirpation of Matter from Left Ureter, Via Natural or Artificial Opening Endoscopic (ICD-10-PCS; principal; 2023-08-24 10:00)
DX: N13.6 Pyonephrosis (principal); D50.9 Iron deficiency anemia, unspecified

== ENCOUNTER → 2024-03-13 | Outpatient (CLI) | payer OTHER ==
[~2024-03-13] MED LIST changes: +ACET-907 PO; +IBUP-1022 PO
== END ==
LOC: M PLAIMG 12:27
PROVIDERS: ATTEND Urology
DX: N20.0 Calculus of kidney (principal)

== ENCOUNTER → 2024-11-13 | Outpatient (CLI) | payer OTHER ==
[2024-11-13 12:51] LABS: HEMATOCRIT 41.3 % (36.0-47.0); HEMOGLOBIN 14.3 g/dl (12.0-15.5); MEAN CORPUSCULAR HEMOGLOBIN 30.2 pg (27.0-33.0); MEAN CORPUSCULAR HGB CONC 34.6 g/dl (32.0-36.5); MEAN CORPUSCULAR VOLUME 87.1 fl (80.0-96.0); PLATELET COUNT, AUTOMATED 286 10^3/uL (150-450); RED BLOOD COUNT 4.74 10^6/uL (4.00-5.40); WHITE BLOOD COUNT 8.8 10^3/uL (4.0-10.0)
[2024-11-13 13:31] LABS: HIV 1&2 SCREEN NEGATIVE (NEGATIVE)
[2024-11-13 13:57] LABS: Trichomonas vaginalis (AMP) NOT DETECTED (NEGATIVE)
[2024-11-13 14:21] LABS: GC DNA AMPLIFICATION NEGATIVE (NEGATIVE)
== END ==
LOC: M PLALAB 09:42
PROVIDERS: ATTEND Nurse Practitioner Family
DX: Z34.81 Encounter for supervision of other normal pregnancy, first trimester (principal)

== ENCOUNTER → 2025-01-23 | Outpatient (CLI) | payer OTHER | LOC: M WHC 09:15 | PROVIDERS: ATTEND Obstetrics & Gynecology | DX: Z36.89 Encounter for other specified antenatal screening (principal); Z3A.19 19 weeks gestation of pregnancy ==

== ENCOUNTER → 2025-05-21 | Outpatient (REF) | payer OTHER ==
[~2025-05-21] MED LIST changes: -IBUP-1022 PO; +IBUP600T42 PO
== END ==
LOC: M SFHCWAGY 10:18
PROVIDERS: ATTEND Advanced Practice Midwife
DX: Z3A.36 36 weeks gestation of pregnancy (principal)

== ENCOUNTER 2025-06-04 09:37 | Inpatient (IN) | payer OTHER ==
[2025-06-04] VITALS (24 sets, daily range): BP systolic 100–134; BP diastolic 51–85; O2SAT 97
[~2025-06-04] VITALS: Ht 149.9 cm; Wt 53.3 kg
[2025-06-04] MEDS ORDERED: METHYLERGONOVINE MALEATE 0.2 MG/ML 1 ML VIAL IM PRN (11:50)
[2025-06-04] MEDS ORDERED: OXYTOCIN DRIP 30 UNITS in IV 1 EA IV PRN (11:50)
[2025-06-04] MEDS ORDERED: CARBOPROST TROMETHAMINE 250 MCG/ML AMP IM PRN (11:50)
[2025-06-04] MEDS ORDERED: LIDOCAINE 1% MDV 20 ML VIAL INFIL PRN (11:50)
[2025-06-04] MEDS ORDERED: TRANEXAMIC ACID INJection 1,000 MG in NS 100 ML IV PRN (11:50)
[2025-06-04 12:44] LABS: PLATELET COUNT, AUTOMATED 258 10^3/uL (150-450)
[2025-06-04] MEDS: OXYTOCIN DRIP 30 UNITS in IV 1 EA IV SCH ×2 (13:08→16:35)
[2025-06-04] MEDS: LR 1,000 ML IV SCH (13:08)
[2025-06-04 13:30] LABS: HIV 1&2 SCREEN NEGATIVE (NEGATIVE)
[2025-06-04 13:38] LABS: HEPATITIS C VIRUS ABY INDEX < 0.02 INDEX (<0.8)
[2025-06-04] MEDS ORDERED: NALOXONE INJ 0.4 MG/1 ML VIAL IV PRN (15:10)
[2025-06-04] MEDS ORDERED: LR 500 ML IV PRN (15:10)
[2025-06-04] MEDS ORDERED: ONDANSETRON 4MG 2ML VIAL IV PRN (15:10)
[2025-06-04] MEDS ORDERED: diphenhydrAMINE 50 MG/ML VIAL IV PRN (15:10)
[2025-06-04] MEDS ORDERED: EPIDURAL/PCA KEYS XX PRN (15:10)
[2025-06-04] MEDS: FENTANYL/ROPIVACAINE/NACL BAG 100 ML EPIDURAL SCH (15:58)
[2025-06-04] MEDS ORDERED: ACETAMINOPHEN 500 MG TAB PO PRN (16:35)
[2025-06-04] MEDS ORDERED: IBUPROFEN 600 MG TAB PO PRN (16:35)
[2025-06-04] MEDS ORDERED: METHYLERGONOVINE MALEATE 0.2 MG TAB PO PRN (16:35)
[2025-06-04] MEDS ORDERED: MOM 30 ML SUSPENSION UDC PO PRN (16:35)
[2025-06-04] MEDS ORDERED: ACETAMINOPHEN 325 MG TAB PO PRN (16:35)
[2025-06-04] MEDS ORDERED: RHOGAM 300MCG (1500IU) INJ IM SCH (16:35)
[2025-06-04] MEDS ORDERED: CALCIUM CARBONATE 500 MG CHEW U/D PO PRN (16:35)
[2025-06-04] MEDS ORDERED: DOCUSATE SODIUM 100 MG CAPSULE PO PRN (16:35)
[2025-06-04] MEDS ORDERED: ANUSOL HC CREAM 30 GM TOP PRN (16:35)
[2025-06-04] MEDS: IBUPROFEN 800 MG TAB PO PRN (19:48)
[2025-06-04] MEDS: DIBUCAINE 1% OINTMENT 30 GM TOP PRN (19:49)
[2025-06-05 06:00] VITALS: BP 111/75; O2SAT 99
[2025-06-05] MEDS: PRENATAL VITAMINS CHEWABLE TABLET PO SCH (08:31)
[2025-06-06] MEDS ORDERED: MEASLES,MUMPS,RUBELLA VACCINE INJ (MMR-II) SC.IMMUN ONE (09:00)
== END 2025-06-05 11:40 | disposition home or self-care (01) | DRG 560 ==
LOC: M LDO 09:37 → M LDI 11:43 → M OBS 17:30 → M LDI 17:38 → M OBS 18:15
PROVIDERS: ADMIT Obstetrics & Gynecology; ATTEND Obstetrics & Gynecology
PROC: 10E0XZZ Delivery of Products of Conception, External Approach (ICD-10-PCS; principal; 2025-06-04)
PROC: 3E033VJ Introduction of Other Hormone into Peripheral Vein, Percutaneous Approach (ICD-10-PCS; 2025-06-04)
DX: O69.1XX0 Labor and delivery complicated by cord around neck, with compression, not applicable or unspecified (principal); Z37.0 Single live birth; Z3A.38 38 weeks gestation of pregnancy

== ENCOUNTER → 2025-09-08 | Outpatient (REF) | payer OTHER | LOC: M PLALAB 14:01 | PROVIDERS: ATTEND Obstetrics & Gynecology | DX: Z12.4 Encounter for screening for malignant neoplasm of cervix (principal); Z53.9 Procedure and treatment not carried out, unspecified reason ==